=== PATIENT | female | born 1985 | race Caucasian/White ===

== ENCOUNTER → 2016-04-14 | Outpatient (CLI) | payer OTHER | LOC: RAD 13:40 | PROVIDERS: ATTEND Family Medicine | DX: B97.4 Respiratory syncytial virus as the cause of diseases classified elsewhere (principal) | CPT/HCPCS: 71020 ==

== ENCOUNTER → 2016-04-22 | Outpatient (CLI) | payer OTHER ==
[2016-04-22 09:05] LABS: BASOPHILS # (AUTO) 0.02 10*3/UL; BASOPHILS % (AUTO) 0.3 % (0-1); EOSINOPHILS % (AUTO) 0.7 % (0-8); HEMATOCRIT 38.2 % (37.0-47.0); HEMOGLOBIN 12.4 g/dL (12.0-16.0); IMM GRAN % (AUTO) 0.7 % (0-5); IMM GRAN# (AUTO) 0.05 10*3/UL; LYMPHOCYTES # (AUTO) 0.97 10*3/uL; LYMPHOCYTES % (AUTO) 13.8 % (10-50); MEAN CORPUSCULAR HGB CONC 32.5 g/dL (33-37); MEAN PLATELET VOLUME 9.7 FL (7.4-12.2); MONOCYTES # (AUTO) 0.42 10*3/UL (0.3-0.8); NEUTROPHILS # (AUTO) 5.53 10*3/UL; NEUTROPHILS % (AUTO) 78.5 % (50-80); RDW COEFFICIENT OF VARIATION 13.8 % (11.5-14.5); RED BLOOD COUNT 4.13 10^6/uL (4.20-5.40); WHITE BLOOD COUNT 7.04 10^3/uL (4.8-10.8)
[2016-04-22 09:06] LABS: PLATELET MORPHOLOGY COMMENT NORMAL MORPHOLOGY (NORM)
== END ==
LOC: LAB 07:48
PROVIDERS: ATTEND Family Medicine
DX: Z36 Encounter for antenatal screening of mother (principal); O26.893 Other specified pregnancy related conditions, third trimester; B97.4 Respiratory syncytial virus as the cause of diseases classified elsewhere; Z3A.29 29 weeks gestation of pregnancy
CPT/HCPCS: 36415; 82950; 84443; 85025

== ENCOUNTER → 2016-05-09 | Outpatient (CLI) | payer OTHER ==
--- NOTE | 2016-05-09 20:39 | DI ---
Clinical History: Uterine size date discrepancy in the third trimester. Previous Exam: None at this facility. Findings: Multiple grayscale and color Doppler sonographic images are obtained through the pelvis demonstrating a single live intrauterine gestation in vertex presentation. Amniotic fluid level is normal measuring 22.5 cm. There is normal motion within the limbs. Detected Doppler heart tones measured 142 beats per minute. The placenta is posterior and grade 2 without visible defects. Estimated gestational age by ultrasound was determined by a composite of biparietal diameter, head ci rcumference, abdominal circumference and femur length yielding an estimated gestational age by ultras ound of 35 weeks 4 days. Biparietal diameter and abdominal circumference measured at greater than the 98th percentile. Estimated weight was 2672 g (98th percentile). Impression: Single live intrauterine gestation. Size measuring 3 weeks 2 days greater than dates. Normal amniotic fluid index.
== END ==
LOC: US 13:48
PROVIDERS: ATTEND Family Medicine
DX: O26.843 Uterine size-date discrepancy, third trimester (principal); Z3A.35 35 weeks gestation of pregnancy
CPT/HCPCS: 76815

== ENCOUNTER → 2016-06-01 | Outpatient (CLI) | payer OTHER ==
--- NOTE | 2016-06-01 15:30 | DI ---
LIMITED OBSTETRICAL ULTRASOUND, 06/01/2016 1:43 PM Clinical History: Uterine size-date discrepancy. Large for dates. Previous Exam: 05/09/2016. ADJUSTED LMP: 09/26/2015. There is a single live IUP currently in vertex presentation. Amnionic fluid content is increased for this stage of consistent with polyhydramnios. Amniotic fluid index is 22.3 cm. activi ty is observed as follows: Cardiac, extremity, and respiratory. The placenta is posterior corpus and Grade 1. heart rate is 152 beats/minute and regular. Distal femoral epiphyses are visualized. B PD, HC, AC, and FL measurements are 92 mm, 336 mm, 336 mm, and 72 mm, respectively. These measurement s correspond to EGA values of 37 weeks 3 days, 38 weeks 4 days, 37 weeks 4 days, and 37 weeks zero da ys, respectively. Composite EGA is 37 weeks 5 days. The [place] EDC is 06/17/2016. EDC by adjusted LMP is . LMP percentile is 92%. Estimated weight is 3212 g, plus or minus, 469 g. Readin. Single live fetus with vertex presentation. Qualitatively, there is polyhydramnios. Amniotic flui d index is 22.3 cm. 2. The composite EGA is 37 weeks 5 days with an ultrasound EDC of 06/17/2016. Based on the adjusted L MP of 09/26/2015, the EDC should be 07/02/2016. 3. LMP percentile is 92%. Estimated weight is 3212 g, plus or minus, 469 g.
== END ==
LOC: US 13:37
PROVIDERS: ATTEND Family Medicine
DX: O26.843 Uterine size-date discrepancy, third trimester (principal); O40.3XX0 Polyhydramnios, third trimester, not applicable or unspecified; Z3A.35 35 weeks gestation of pregnancy
CPT/HCPCS: 76815

== ENCOUNTER → 2016-06-07 | Outpatient (CLI) | payer OTHER | LOC: MOB LAB 11:37 | PROVIDERS: ATTEND Family Medicine | DX: Z36 Encounter for antenatal screening of mother (principal); Z3A.36 36 weeks gestation of pregnancy | CPT/HCPCS: 87150 ==

== ENCOUNTER 2016-06-20 22:41 | Inpatient (IN) | payer OTHER ==
[2016-06-20] MEDS ORDERED: NORMAL SALINE 10 ML SYRINGE FLUSH IVP PRN ×2 (22:46→23:23)
[2016-06-20] MEDS ORDERED: Phenylephrine Inj 50 MCG in Normal Saline Flush 0.5 ML IVP PRN (23:23)
[2016-06-20] MEDS ORDERED: ONDANSETRON 4 MG/2 ML VIAL IVP PRN (23:23)
[2016-06-20] MEDS ORDERED: Carboprost Inj 250 MCG/ML AMP IM PRN (23:23)
[2016-06-20] MEDS ORDERED: BUTORPHANOL TARTRATE 2 MG/1 ML VIAL IVP PRN (23:23)
[2016-06-20] MEDS ORDERED: MISOPROSTOL 200 MCG TABLET RECTAL PRN (23:23)
[2016-06-20] MEDS ORDERED: METHYLERGONOVINE MALEATE 0.2 MG/1 ML VIAL IM PRN (23:23)
[2016-06-20] MEDS ORDERED: Famotidine Inj 20 MG in Normal Saline Flush 10 ML IVP PRN ×4 (23:23)
[2016-06-20] MEDS ORDERED: CefOXitin Inj 2 GM in Sodium Chloride 0.9% 100 ML IV PRN (23:23)
[2016-06-20] MEDS ORDERED: TERBUTALINE SULFATE 1 MG/1 ML SDV SUBCUT PRN (23:23)
[2016-06-20] MEDS ORDERED: fentaNYL Inj 100 MCG/2 ML VIAL IV PRN (23:23)
[2016-06-20] MEDS ORDERED: OXYTOCIN 10 UNIT/1 ML IM PRN (23:23)
[2016-06-20] MEDS ORDERED: Metoclopramide Inj 10 MG/2 ML VIAL IV PRN (23:23)
[2016-06-20] MEDS ORDERED: CITRIC ACID/SODIUM CITRATE 30 ML CUP PO PRN (23:23)
[2016-06-20] MEDS ORDERED: diphenhydrAMINE 50 MG/1 ML VIAL IVP PRN (23:23)
[2016-06-20] MEDS ORDERED: Naloxone Inj 0.01 MG in Normal Saline Flush 1 ML IVP PRN (23:23)
[2016-06-20] MEDS ORDERED: LIDOCAINE W/ SODIUM BICARB 0.5 ML SYR SUBD PRN (23:23)
[2016-06-20] MEDS ORDERED: Nalbuphine Inj 20 MG/ML Ampule IVP PRN (23:23)
[2016-06-20] MEDS ORDERED: Lidocaine 1% 10 MG/ML - 20 ML VIAL SUBCUT PRN (23:23)
[2016-06-20] MEDS ORDERED: ePHEDrine Inj 5 MG in Normal Saline Flush 1 ML IVP PRN (23:23)
[2016-06-20] MEDS ORDERED: NALOXONE 0.4 MG/1 ML VIAL IVP PRN (23:23)
[2016-06-20] MEDS ORDERED: CALCIUM CARBONATE 500 MG (TUMS) CHEWABLE TABLET PO PRN (23:23)
[2016-06-20] MEDS ORDERED: Oxytocin 20 Units + LR 1,000 ML IV SCH (23:30)
[2016-06-20 23:54] LABS: HEMATOCRIT 38.9 % (37.0-47.0); HEMOGLOBIN 12.6 g/dL (12.0-16.0); MEAN CORPUSCULAR HEMOGLOBIN 29.4 PG (27-31); MEAN CORPUSCULAR HGB CONC 32.4 g/dL (33-37); MEAN CORPUSCULAR VOLUME 90.9 FL (81-99); MEAN PLATELET VOLUME 10.8 FL (7.4-12.2); RED BLOOD COUNT 4.28 10^6/uL (4.20-5.40)
[2016-06-21] MEDS: Lactated Ringers-OB Dept 1,000 ML PRIMARY IV SCH ×3 (02:42→09:44)
[2016-06-21] MEDS ORDERED: Oxytocin 20 Units + LR 1,000 ML IV SCH ×2 (03:00→07:53)
[2016-06-21] MEDS ORDERED: LIDOCAINE MPF 2% - 5 ML (20 MG/1 ML) ONE (03:27)
[2016-06-21] MEDS ORDERED: Fent/Bupiv 2mcg/0.0625% Epid 250 ML ONE (03:31)
[2016-06-21] MEDS ORDERED: diphenhydrAMINE 50 MG/1 ML VIAL IVP PRN ×2 (03:50→07:53)
[2016-06-21] MEDS ORDERED: ePHEDrine Inj 5 MG in Normal Saline Flush 1 ML IVP PRN (03:50)
[2016-06-21] MEDS ORDERED: BUTORPHANOL TARTRATE 2 MG/1 ML VIAL IVP PRN (03:50)
[2016-06-21] MEDS ORDERED: NALOXONE 0.4 MG/1 ML VIAL IVP PRN (03:50)
[2016-06-21] MEDS ORDERED: Phenylephrine Inj 50 MCG in Normal Saline Flush 0.5 ML IVP PRN (03:50)
[2016-06-21] MEDS ORDERED: Naloxone Inj 0.01 MG in Normal Saline Flush 1 ML IVP PRN (03:50)
[2016-06-21] MEDS ORDERED: Nalbuphine Inj 20 MG/ML Ampule IVP PRN ×2 (03:50→07:53)
[2016-06-21] MEDS ORDERED: fentaNYL 2 MCG/BUPIVACAINE 0.0625%/NS 0.9% 250 ML BAG EPIDURAL ONE (03:52)
--- NOTE | 2016-06-21 04:03 | CRNA.PROCE ---
Central Neuraxis Block [facility] - - Safety Measures: Site Verified - - Type of Block: Epidural (Epidural for labor. Came to OB unit @ 2330-4 cm. Now greater than 5 requesting analgesia. Has had no opiate parenterally. SROM 2230 06/20/16. Platelets 155k. NKDA.) Reason for Block: Analgesia Moniters Used During Block: SPO2, NIBP Positioning: Sitting Skin Prep Used: Betadine (Times 3) Draped: Yes Skin Infiltration - Enter Amount Used in Comment Field: 1% Xylocaine (mL): Yes ( 1.5 ml) Introducer User: None Spinal Needle Used: 18 Hustead 80 mm (HAYDER with saline. Epidural space twice. First pass attempt at catheter threading produced a very strong parasthesia to Left side, so redirected needle to the right and re-entered space same technique. Catheter threaded with ease.) Local Anesthetic - Enter Amount Used in Comment Field: 1.5 % Xylocaine with Epinephrine 1:200,000 (mL): Yes (4 ml) Bioclusive Dressing Applied: Yes (Skin prep under adhesive.) - - Additional Details: E-natals reviewed, Laboratory Results 06/20/16 06/20/16 Range/Units 23:10 23:47 WBC 11.25 H (4.8-10.8) 10^3/uL RBC 4.28 (4.20-5.40) 10^6/uL Hgb 12.6 (12.0-16.0) g/dL Hct 38.9 (37.0-47.0) % MCV 90.9 (81-99) FL MCH 29.4 (27-31) PG MCHC 32.4 L (33-37) g/dL RDW Std Deviation 46.4 (39-50) fL RDW Coeff of Tang 14.2 (11.5-14.5) % Plt Count 155 (140-350) 10*3/uL MPV 10.8 (7.4-12.2) FL Amnio Fld Other Info Positive (NEGATIVE) Test dose at 314. 5 ml of 2% Lido mpf @325. Started infusion of 0.0625% Bupivicaine with Fent 2 mcg/ml @350. Pt reports significant reduction in discomfort prior to start of infusion.
--- NOTE | 2016-06-21 07:23 | CRNA.PROGR ---
Anesthesia Note Anesthesia Progress Note: Delivered vaginally at 638. No lacerations. Placenta delivered without problems. Viri Ford MS, SURFACING TECHNICIAN
[2016-06-21] MEDS ORDERED: DIPH,PERTUSS,TET(ADACEL) VAC/PF 0.5 ML (Tdap) IM SCH (07:53)
[2016-06-21] MEDS ORDERED: Methylergonovine Tab 0.2 MG TAB PO PRN (07:53)
[2016-06-21] MEDS ORDERED: GLYCERIN/WITCH HAZEL 1 BOX TOPICAL PRN (07:53)
[2016-06-21] MEDS ORDERED: Ondansetron ODT Tab 4 MG TAB PO PRN (07:53)
[2016-06-21] MEDS ORDERED: diphenhydrAMINE 25 MG CAPSULE PO PRN (07:53)
[2016-06-21] MEDS ORDERED: Carboprost Inj 250 MCG/ML AMP IM PRN (07:53)
[2016-06-21] MEDS ORDERED: NORMAL SALINE 10 ML SYRINGE FLUSH IVP PRN (07:53)
[2016-06-21] MEDS ORDERED: MISOPROSTOL 200 MCG TABLET RECTAL ONE (07:53)
[2016-06-21] MEDS ORDERED: OXYTOCIN 10 UNIT/1 ML IM ONE (07:53)
[2016-06-21] MEDS ORDERED: LANOLIN HPA 40 GM TUBE TOPICAL PRN (07:53)
[2016-06-21] MEDS ORDERED: ACETAMINOPHEN 325 MG TABLET PO PRN (07:53)
[2016-06-21] MEDS ORDERED: CALCIUM CARBONATE 500 MG (TUMS) CHEWABLE TABLET PO PRN (07:53)
[2016-06-21] MEDS ORDERED: BENZOCAINE/MENTHOL SPRAY 56 GM BOTTLE TOPICAL PRN (07:53)
[2016-06-21] MEDS ORDERED: METHYLERGONOVINE MALEATE 0.2 MG/1 ML VIAL IM PRN (07:53)
[2016-06-21] MEDS ORDERED: ONDANSETRON 4 MG/2 ML VIAL IVP PRN (07:53)
[2016-06-21] MEDS: IBUPROFEN 800 MG TABLET PO PRN ×2 (08:38→17:42)
[2016-06-21] MEDS: DOCUSATE 100 MG CAPSULE PO SCH ×2 (10:27→20:43)
[2016-06-21] MEDS: HYDROcodone-APAP 5 MG -325 MG TABLET PO PRN ×2 (13:02→20:42)
--- NOTE | 2016-06-21 15:47 | OB.DEL.SUM ---
Delivery Note Delivery Summary: Pt is a 30 yo G2 now P1 at 38 2/7 weeks by early /s who presented last [facility] with spontaneous rupture of membranes at home with clear fluid. She presented to labor and delivery and was 4-5/70/-2. She progressed on her own through the [facility] and had an epidural placed around 0300 for pain control. She was complete at 0600. She began pushing around 0630 and delivered a viable male infant over an intact perineum at 0638. There was a cord around the baby's shoulders. The nose and mouth were suctioned with a bulb suction and the cord was clamped and cut. Baby was placed on mom's chest. Cord blood and cord gases were obtained for analysis. The placenta delivered spontaneously and intact at 0645. There was a 3 vessel cord. 20 mU of pitocin were infused. The uterus firmed up nicely. The vagina and perineum were examined and a first degree posterior vaginal laceration was noted and repaired in the normal fashion with 3-0 vicryl rapide suture. EBL 200 cc. Apgars were 8 at 1 minute and 9 at 5 minutes. Baby weighed 8#1.8oz. Both mom and baby tolerated delivery well and are in stable condition at this time.
[2016-06-22] MEDS: IBUPROFEN 800 MG TABLET PO PRN ×2 (02:08→08:46)
[2016-06-22] MEDS: HYDROcodone-APAP 5 MG -325 MG TABLET PO PRN (02:08)
[2016-06-22 06:02] LABS: HEMATOCRIT 36.3 % (37.0-47.0); HEMOGLOBIN 11.5 g/dL (12.0-16.0); MEAN CORPUSCULAR HEMOGLOBIN 29.3 PG (27-31); MEAN CORPUSCULAR HGB CONC 31.7 g/dL (33-37); MEAN CORPUSCULAR VOLUME 92.6 FL (81-99); MEAN PLATELET VOLUME 11.6 FL (7.4-12.2); RED BLOOD COUNT 3.92 10^6/uL (4.20-5.40)
[2016-06-22] MEDS: DOCUSATE 100 MG CAPSULE PO SCH (08:46)
[2016-06-22 08:51] VITALS: RESP 18; TEMP 98
[2016-06-22] MEDS ORDERED: Prenatal Multivitamin Tab 1 TAB TAB PO SCH (09:00)
--- NOTE | 2016-06-26 22:22 | OB.PROGRES ---
Subjective Post Day: 1 Zhou Catheter: No Flatus: Yes Diet: Regular Feeding Method: Exculsively Ambulating: Yes Objective - General General Appearance: POSITIVE: No Acute Distress, Cooperative - Cardiovacular Cardiovascular Exam: POSITIVE: RRR, No Murmur Edema: +1 Pedal Edema Extremities: Negative Jesica's - Bilaterally - Respiratory Respiratory Exam: POSITIVE: Clear to Auscultation - Bilaterally, Breathing Non Labored - Abdomen Bowel Sounds: Present Assesstment / Plan (1) Vaginal delivery Status: Acute Assessment / Plan: -routine cares. -normal H&H -breast feeding going well. -rh positive. -rubella immune. -d/c home later this afternoon per pt request.
== END 2016-06-22 16:05 | disposition home or self-care (01) | DRG 775 ==
LOC: OBOP 22:41 → OBIP 23:23
PROVIDERS: ADMIT Family Medicine; ATTEND Family Medicine
PROC: 10E0XZZ Delivery of Products of Conception, External Approach (ICD-10-PCS; principal; 2016-06-21)
PROC: 0HQ9XZZ Repair Perineum Skin, External Approach (ICD-10-PCS; 2016-06-21)
DX: O71.4 Obstetric high vaginal laceration alone (principal); Z3A.38 38 weeks gestation of pregnancy; Z37.0 Single live birth
CPT/HCPCS: 36415; 81003; 84112; 85027; J2001; J2210; J2405; J3490; J7120